=== PATIENT | female | born 1955 | race Caucasian/White ===

== ENCOUNTER → 2020-11-10 | Outpatient (CLI) | payer BC | LOC: RAD 09:32 | DX: M25.571 Pain in right ankle and joints of right foot (principal) | CPT/HCPCS: 73600; 73620 ==

== ENCOUNTER → 2020-12-04 | Outpatient (CLI) | payer BC | LOC: KOH-I 11-27 13:30 | DX: F17.210 Nicotine dependence, cigarettes, uncomplicated (principal) | CPT/HCPCS: 71271 ==